=== PATIENT | female | born 1930 ===

== ENCOUNTER 2020-07-05 21:03 | Emergency (ER) | payer OTHER ==
[~2020-07-05] VITALS: Ht 165.1 cm; Wt 59.9 kg
[~2020-07-05 21:03] MED LIST: AMLODIPINE BESY10 MG; ULTRACET
[2020-07-05] MEDS ORDERED: ATORVASTATIN CA10 MG PO (22:06)
[2020-07-05] MEDS ORDERED: ST. JOSEPH ASPI81 M2 PO (22:07)
[2020-07-05] MEDS ORDERED: ISOSORBIDE MONO30 M2 PO (22:07)
[2020-07-05] MEDS ORDERED: LISINOPRIL10 MG PO (22:07)
== END 2020-07-06 09:02 | disposition designated cancer center or children's hospital (05) ==
LOC: ER 21:03
DX: I61.9 Nontraumatic intracerebral hemorrhage, unspecified (principal); I10 Essential (primary) hypertension
CPT/HCPCS: 70545